=== PATIENT | female | born 1965 | race Caucasian/White ===

== ENCOUNTER 2020-06-04 11:16 | Outpatient (REF) | payer MEDICARE, SELFPAY ==
--- NOTE | 2020-06-04 11:20 | MM_ITS ---
EXAMINATION: MM SCREENING DIGITAL BREAST TOMOSYNTHESIS, BILATERAL CLINICAL INFORMATION: Screening. Asymptomatic. Family history of breast cancer in sister. The lifetime risk of breast cancer based on the Tyrer-Cuzick Model is 11%. COMPARISON: Mammography: 05/30/2019, 05/26/2018, 12/06/2016 TECHNIQUE: Digital breast tomosynthesis is performed in both the craniocaudal and mediolateral oblique views along with computer-aided detection (CAD). Synthesized 2D images are generated from the tomosynthesis. FINDINGS: There are scattered areas of fibroglandular density (ACR BI-RADS breast composition Category b). There are no significant masses, abnormal calcifications, or other abnormalities. Parenchymal pattern is similar to prior studies. No developing density. No significant changes. MM/MM tomosynthesis screening BI IMPRESSION: No mammographic evidence of malignancy. ASSESSMENT: BI-RADS 1: Negative RECOMMENDATION: Routine annual mammography screening. This patient's information was entered into a reminder system with a target due date for their next mammogram.
== END 2020-06-04 11:17 | disposition home or self-care (01) ==
LOC: HO.MAMMO 11:16
PROVIDERS: PCP Internal Medicine Medical Oncology; Visit Provider Internal Medicine Medical Oncology
DX: Z12.31 Encounter for screening mammogram for malignant neoplasm of breast (principal)
CPT/HCPCS: 77063; 77067

== ENCOUNTER 2021-04-01 11:58 | Outpatient (REF) | payer MEDICARE, MEDICAID, SELFPAY ==
[2021-04-01 12:55] LABS: MANUAL DIFF FLAG NO
[2021-04-01 13:02] LABS: Basophils Percent Auto 0.3 % (0-2); Eosinophils Absolute Auto 0.8 X10*3/uL (0.0-0.4); Eosinophils Percent Auto 8.5 % (0-4); Hematocrit 42.7 % (37-47); Hemoglobin 13.7 g/dl (12.0-16.0); Imm Gran Abs Auto 0.04 X10*3/uL (0.00-0.03); Imm Gran Pct Auto 0.4 % (0.0-0.4); Lymphocytes Absolute Auto 2.5 X10*3/uL (1.2-4.9); Lymphocytes Percent Auto 27.1 % (20-40); Mean Corpuscular HGB Conc 32.1 g/dl (31.0-35.0); Mean Corpuscular Hemoglobin 29.1 pg (27.0-33.0); Mean Corpuscular Volume 90.9 fL (80-98); Mean Platelet Volume 10.7 fL (9.4-12.3); Monocytes Absolute Auto 0.6 X10*3/uL (0.1-1.2); Monocytes Percent Auto 6.6 % (2-11); Neutrophils Absolute Auto 5.3 X10*3/uL (2.0-8.3); Neutrophils Percent Auto 57.1 % (45-73); Platelet Count 341 X10*3/uL (160-400); Red Cell Distribution Width 12.8 % (11.0-16.0); White Blood Count 9.3 X10*3/uL (4.8-10.8)
[2021-04-01 13:14] LABS: D Dimer < 200 NG/ML
[2021-04-01 13:49] LABS: Alanine Aminotransferase 33 U/L (0-31); Albumin Level 4.3 g/dL (3.5-5.0); Alkaline Phosphatase 108 U/L (39-117); Anion Gap 12 (12-20); Aspartate Amino Transferase 25 U/L (5-31); Bilirubin Total 0.3 mg/dL (0.0-1.0); Blood Urea Nitrogen 8 mg/dL (9-16); Calcium 9.3 mg/dL (8.4-10.2); Carbon Dioxide 25 mmol/L (22-29); Chloride 106 mmol/L (96-108); Cholesterol 204 mg/dL; Estimated Glomerular Filt Rate > 60; Glucose Fasting 103 mg/dL (60-99); HDL Cholesterol 43 mg/dL; LDL Cholesterol Calculated 121 mg/dl; Potassium 4.4 mmol/L (3.3-5.1); Sodium 139 mmol/L (135-145); Total Protein 7.2 g/dL (6.5-8.0); Triglycerides 202 mg/dL
== END 2021-04-01 11:59 | disposition home or self-care (01) ==
LOC: HO.LAB 11:58
PROVIDERS: PCP Internal Medicine Medical Oncology; Visit Provider Internal Medicine Medical Oncology
DX: E66.9 Obesity, unspecified (principal)
CPT/HCPCS: 36415; 80053; 80061; 85025; 85379

== ENCOUNTER 2021-11-18 10:32 | Outpatient (REF) | payer MEDICARE, MEDICAID, SELFPAY ==
--- NOTE | ~2021-11-18 | MM_ITS ---
EXAMINATION: MM SCREENING DIGITAL BREAST TOMOSYNTHESIS, BILATERAL CLINICAL INFORMATION: Screening. Asymptomatic. Family history breast cancer, sister. The lifetime risk of breast cancer based on the Tyrer-Cuzick Model is 12%. COMPARISON: Mammography: 06/04/2020, 05/30/2019, 05/26/2018, 11/12/2016 TECHNIQUE: Digital breast tomosynthesis is performed in both the craniocaudal and mediolateral oblique views along with computer-aided detection (CAD). Synthesized 2D images are generated from the tomosynthesis. Additional bilateral MLO views are obtained. FINDINGS: There are scattered areas of fibroglandular density (ACR BI-RADS breast composition Category b). There are no significant masses, abnormal calcifications, or other abnormalities. Parenchymal pattern is similar to prior studies. There is no developing density or architectural abnormality. There are scattered shifting fibroglandular parenchymal densities overall similar to prior studies. The axilla and skin contours are unremarkable. No significant changes. MM/MM tomosynthesis screening BI IMPRESSION: No mammographic evidence of malignancy. ASSESSMENT: BI-RADS 1: Negative RECOMMENDATION: Routine annual mammography screening. This patient's information was entered into a reminder system with a target due date for their next mammogram.
== END 2021-11-18 10:33 | disposition home or self-care (01) ==
LOC: HO.MAMMO 10:32
PROVIDERS: PCP Internal Medicine Medical Oncology; Visit Provider Internal Medicine Medical Oncology
DX: Z12.31 Encounter for screening mammogram for malignant neoplasm of breast (principal)
CPT/HCPCS: 77063; 77067

== ENCOUNTER → 2022-08-14 13:11 | Outpatient (BNVA) | payer MEDICARE, MEDICAID, SELFPAY | PROVIDERS: PCP Internal Medicine Medical Oncology; Visit Provider Internal Medicine | DX: K62.5 Hemorrhage of anus and rectum (principal); K29.70 Gastritis, unspecified, without bleeding; B96.81 Helicobacter pylori [H. pylori] as the cause of diseases classified elsewhere; Z86.010 Personal history of colon polyps; Z80.0 Family history of malignant neoplasm of digestive organs | CPT/HCPCS: 99202 ==

== ENCOUNTER → 2022-10-14 11:26 | Outpatient (BNVA) | payer MEDICARE, MEDICAID, SELFPAY | PROVIDERS: PCP Internal Medicine Medical Oncology; Visit Provider Internal Medicine | DX: Z11.0 Encounter for screening for intestinal infectious diseases (principal) | CPT/HCPCS: 99211 ==

== ENCOUNTER 2022-10-15 17:21 | Outpatient (REF) | payer MEDICARE, MEDICAID, SELFPAY ==
[2022-10-16 13:45] LABS: H Pylori Breath Test Positive (Negative)
== END 2022-10-15 17:22 | disposition home or self-care (01) ==
LOC: HO.LNP 17:21
PROVIDERS: Visit Provider Internal Medicine
DX: K29.70 Gastritis, unspecified, without bleeding (principal)
CPT/HCPCS: 83013

== ENCOUNTER → 2022-11-04 11:08 | Outpatient (BNVA) | payer MEDICARE, MEDICAID, SELFPAY | PROVIDERS: PCP Internal Medicine Medical Oncology; Visit Provider Internal Medicine | DX: K29.70 Gastritis, unspecified, without bleeding (principal); B96.81 Helicobacter pylori [H. pylori] as the cause of diseases classified elsewhere; Z86.010 Personal history of colon polyps; Z80.0 Family history of malignant neoplasm of digestive organs | CPT/HCPCS: 99212 ==

== ENCOUNTER 2022-11-20 11:06 | Outpatient (REF) | payer MEDICARE, MEDICAID, SELFPAY ==
--- NOTE | ~2022-11-20 | MM_ITS ---
EXAMINATION: MM SCREENING DIGITAL BREAST TOMOSYNTHESIS, BILATERAL CLINICAL INFORMATION: Screening. Asymptomatic. The lifetime risk of breast cancer based on the Tyrer-Cuzick Model is 12.4%. COMPARISON: Mammography: November 18, 2021 and studies dating back to April 16, 2015 TECHNIQUE: Digital breast tomosynthesis is performed in both the craniocaudal and mediolateral oblique views along with computer-aided detection (CAD). Synthesized 2D images are generated from the tomosynthesis. FINDINGS: There are scattered areas of fibroglandular density (ACR BI-RADS breast composition Category b). There are no new significant masses, abnormal calcifications, or other abnormalities. Stable density with some adjacent stable calcifications seen within the upper outer aspect of the left breast MM/MM tomosynthesis screening BI IMPRESSION: No significant changes from prior exam. ASSESSMENT: BI-RADS 2: Benign RECOMMENDATION: Routine annual mammography screening. This patient's information was entered into a reminder system with a target due date for their next mammogram.
== END 2022-11-20 11:07 | disposition home or self-care (01) ==
LOC: HO.MAMMO 11:06
PROVIDERS: PCP Internal Medicine Medical Oncology; Visit Provider Internal Medicine Medical Oncology
DX: Z12.31 Encounter for screening mammogram for malignant neoplasm of breast (principal)
CPT/HCPCS: 77063; 77067

== ENCOUNTER → 2022-12-30 10:43 | Outpatient (BNVA) | payer MEDICARE, MEDICAID, SELFPAY | PROVIDERS: PCP Internal Medicine Medical Oncology; Visit Provider Internal Medicine | DX: Z11.0 Encounter for screening for intestinal infectious diseases (principal) | CPT/HCPCS: 83013; 99211 ==

== ENCOUNTER 2022-12-30 11:15 | Outpatient (REF) | payer MEDICARE, MEDICAID, SELFPAY ==
[2023-01-07 11:18] LABS: H Pylori Breath Test Positive (Negative)
== END 2022-12-30 11:16 | disposition home or self-care (01) ==
LOC: HO.LNP 11:15
PROVIDERS: Visit Provider Internal Medicine
DX: Z13.89 Encounter for screening for other disorder (principal)
CPT/HCPCS: 83013

== ENCOUNTER → 2023-01-19 11:44 | Outpatient (BNVA) | payer MEDICARE, MEDICAID, SELFPAY | PROVIDERS: PCP Internal Medicine Medical Oncology; Visit Provider Internal Medicine | DX: K29.70 Gastritis, unspecified, without bleeding (principal); B96.81 Helicobacter pylori [H. pylori] as the cause of diseases classified elsewhere; I10 Essential (primary) hypertension; J44.9 Chronic obstructive pulmonary disease, unspecified; Z86.010 Personal history of colon polyps; Z80.0 Family history of malignant neoplasm of digestive organs; Z91.199 Patient's noncompliance with other medical treatment and regimen due to unspecified reason | CPT/HCPCS: 99212 ==

== ENCOUNTER 2023-04-15 09:20 | Day surgery (SDC) | payer MEDICARE, MEDICAID, SELFPAY ==
--- NOTE | 2022-12-30 10:57 | HO.ANESPROP2 ---
HPI - Anesthesia Eval Consult details Narrative: 57yo F for Upper Endoscopy and Colonoscopy [facility] Active Problems Active Problems: All Active Problems (Updated 12/29/22 @ 14:02 by Daiana Harris RN) Bright red rectal bleeding (Acute) Personal history of colonic polyps (Acute) Family history of gastric cancer (Acute) Helicobacter pylori gastritis (Acute) Past Medical History Medical History Chronic back pain COPD (chronic obstructive pulmonary disease) Helicobacter pylori gastritis HTN (hypertension) Lumbar radiculopathy Obesity Smoker Family History Family History Mother Stomach cancer Maternal Grandfather Prostate cancer screening declined Sister Cervical cancer Sister Breast cancer Diabetes Paternal Aunt Heart disease Surgical History Surgical History H/O colonoscopy Hx of appendectomy S/P removal of right ovary S/P tonsillectomy S/P tubal ligation Social History Social History Alcohol intake: current Alcohol intake frequency: holidays/special occasions only Patient Tobacco Use Status: Current everyday Tobacco user Cigarettes Per Day: 3 Meds Allergies Allergy/AdvReac Type Severity Reaction Status Date / Time Latex, Natural Rubber Allergy Severe Rash Verified 11/04/22 11:13 Home Medications Medication Instructions Recorded Confirmed Last Taken Type albuterol sulfate 90 mcg/actuation 2 puff inhalation Q4H PRN 08/14/22 11/04/22 Unknown History aerosol inhaler (Ventolin HFA) amlodipine 5 mg tablet 5 mg PO BID 08/14/22 11/04/22 Unknown History cyclobenzaprine 10 mg tablet 10 mg PO BID 08/14/22 11/04/22 Unknown History gabapentin 600 mg tablet 600 mg PO QID 08/14/22 11/04/22 Unknown History montelukast 10 mg tablet 10 mg PO DAILY 08/14/22 11/04/22 Unknown History Exam Exam Date and Time: December 30, [id number] Assessment and Plan Assessment Anesthesia Assessment: Chart Reviewed
--- NOTE | 2023-04-14 09:26 | HO.ANESPROP2 ---
Documented by User: Sandra Franklin NP 04/14/23 09:27 HPI - Anesthesia Eval Consult details Narrative: 58yo F for Upper Endoscopy and Colonoscopy [facility] Active Problems Active Problems: All Active Problems (Updated 12/29/22 @ 14:02 by Daiana Harris, SHRUTHI) Bright red rectal bleeding (Acute) Personal history of colonic polyps (Acute) Family history of gastric cancer (Acute) Helicobacter pylori gastritis (Acute) Past Medical History Medical History Obesity Chronic back pain Lumbar radiculopathy Smoker HTN (hypertension) COPD (chronic obstructive pulmonary disease) Helicobacter pylori gastritis Family History Family History Mother Stomach cancer Maternal Grandfather Prostate cancer screening declined Sister Cervical cancer Sister Breast cancer Diabetes Paternal Aunt Heart disease Surgical History Surgical History History of esophagogastroduodenoscopy (EGD) H/O colonoscopy S/P removal of right ovary S/P tubal ligation S/P tonsillectomy Hx of appendectomy Social History Social History Alcohol intake: current Alcohol intake frequency: holidays/special occasions only Patient Tobacco Use Status: Current everyday Tobacco user Cigarettes Per Day: 3 Are you DNR?: No Advance Directives: No Advance Directives Information Provided: Yes Recently lost weight without trying: No Meds Allergies Allergy/AdvReac Type Severity Reaction Status Date / Time Latex, Natural Rubber Allergy Severe Rash Verified 01/19/23 11:46 Home Medications Medication Instructions Recorded Confirmed Last Taken Type albuterol sulfate 90 mcg/actuation 2 puff inhalation Q4H PRN 08/14/22 11/04/22 Unknown History aerosol inhaler (Ventolin HFA) amlodipine 5 mg tablet 5 mg PO BID 08/14/22 11/04/22 Unknown History cyclobenzaprine 10 mg tablet 10 mg PO BID 08/14/22 11/04/22 Unknown History gabapentin 600 mg tablet 600 mg PO QID 08/14/22 11/04/22 Unknown History montelukast 10 mg tablet 10 mg PO DAILY 08/14/22 11/04/22 Unknown History naproxen sodium 220 mg tablet (All 220 mg PO Q12H PRN 01/19/23 Unknown History Day Relief) Exam Exam Date and Time: April 14, [id number] Assessment and Plan Assessment Anesthesia Assessment: Chart Reviewed Documented by User: Lilibeth Dominguez MD 04/15/23 10:20 [facility] Past Medical History Medical History Obesity Chronic back pain Lumbar radiculopathy Smoker HTN (hypertension) COPD (chronic obstructive pulmonary disease) Helicobacter pylori gastritis Family History Family History Mother Stomach cancer Maternal Grandfather Prostate cancer screening declined Sister Cervical cancer Sister Breast cancer Diabetes Paternal Aunt Heart disease Surgical History Surgical History History of esophagogastroduodenoscopy (EGD) H/O colonoscopy S/P removal of right ovary S/P tubal ligation S/P tonsillectomy Hx of appendectomy History of Problems with Anesthesia: No Social History Social History Alcohol intake: current Alcohol intake frequency: holidays/special occasions only Patient Tobacco Use Status: Current everyday Tobacco user Cigarettes Per Day: 3 Are you DNR?: No Advance Directives: No Advance Directives Information Provided: Yes Recently lost weight without trying: No Meds Allergies Allergy/AdvReac Type Severity Reaction Status Date / Time Latex, Natural Rubber Allergy Severe Rash Verified 01/19/23 11:46 Home Medications Medication Instructions Recorded Confirmed Last Taken Type albuterol sulfate 90 mcg/actuation 2 puff inhalation Q4H PRN 08/14/22 11/04/22 Unknown History aerosol inhaler (Ventolin HFA) amlodipine 5 mg tablet 5 mg PO BID 08/14/22 11/04/22 Unknown History cyclobenzaprine 10 mg tablet 10 mg PO BID 08/14/22 11/04/22 Unknown History gabapentin 600 mg tablet 600 mg PO QID 08/14/22 11/04/22 Unknown History montelukast 10 mg tablet 10 mg PO DAILY 08/14/22 11/04/22 Unknown History naproxen sodium 220 mg tablet (All 220 mg PO Q12H PRN 01/19/23 Unknown History Day Relief) Exam Airway Mallampati Class: II (edentulous) TM Dist: >3cm Neck ROM: Full Denture: Upper Loose/Missing/Broken Teeth: Yes, Upper and Lower Heart: RRR Lungs: CTA Assessment and Plan Assessment Anesthesia Assessment: Anesthesia Plan Discussed Final Anesthetic Review History of Problems with Anesthesia: No NPO: Yes ASA Class: II Final Preanesthetic Review: Meds/Allgs Chart Reviewed, Consent Obtained/Reviewed and Anes Risks/Benef Reviewed Patient Risk: Low Procedure Risk: Intermediate Anesthetic Plan Anesthetic Plan: MAC: Disposition: Standard PACU
[2023-04-15 09:39] VITALS: BP 133/93; PULSE 79; RESP 20; TEMP 36.1; O2SAT 96; BMI 31.9
--- NOTE | 2023-04-15 11:41 | MHC.SHP ---
Pre-Procedural Eval Section A Date of Service: 04/15/23 Section B Chief Complaint: Fam hx of gastric ca, hx colonic polyps Details of Present Illness: PMH: Chronic back pain COPD (chronic obstructive pulmonary disease) Helicobacter pylori gastritis HTN (hypertension) Lumbar radiculopathy Obesity Smoker Surgical History : H/O colonoscopy History of esophagogastroduodenoscopy (EGD) Hx of appendectomy S/P removal of right ovary S/P tonsillectomy S/P tubal ligation Present Medications: see Short Stay Collaborative assessment Allergies: Allergies Allergy/AdvReac Type Severity Reaction Status Date / Time Latex, Natural Rubber Allergy Severe Rash Verified 01/19/23 11:46 Review of Systems Review of Systems Comment: Ten point ROS negative Exam Exam Comment: Gen appear: No acute distress HEENT: no icterus Chest: No overt resp distress Abd: soft, nontender, nondistended Psych: Stable affect, answering questions appropriately Neuro: A/Ox3 noted to move all extremities spontaneously Ext: no peripheral edema Plan Diagnosis/Plan: Unchanged I have reviewed the history and physical and performed a pertinent physical examination on my patient. No changes have occurred unless specified. Time Spent With Patient Time: Total time managing care of this patient today ____ minutes.
--- NOTE | 2023-04-15 11:43 | P.OP_ITS ---
Operative Note Operative Note Date of Service: 04/15/23 Narrative: Procedure:?Esophagogastroduodenoscopy and colonoscopy Endoscopist:?Sasha Orozco MD Indication:?Fam hx of gastric ca, hx of colon polyps Anesthesia Provider:?Dr Lilibeth Dominguez Anesthesia Type:?MAC Instrument:?Olympus GIF-H190, PCF-H190L EGD Procedure:?? The procedure, indications, preparation and potential complications were reviewed with the patient, who indicated understanding and gave written informed consent to proceed. A physical exam was performed. The endoscope was introduced through the mouth, and advanced to the second part of duodenum. The mucosa was carefully examined on slow withdrawal of the endoscope. There were no immediate complications. Patient tolerated the procedure well. EGD Findings:? * Esophagus:? Normal mucosa noted in the entire esophagus. The Z-line is at 40 cm. * Stomach:? Normal gastric mucosa. Retroflexion performed in the fundus. Specimens from antrum and fundus were sent for H Pylori culture and sensitivities. Cold forceps biopsies were also obtain for gastric mapping per Leida Protocol to r/o gastric intestinal metaplasia. * Duodenum:? Normal duodenal mucosa to the extent visualised. Colonoscopy Procedure:? The patient was then turned for the colonoscopy. A digital rectal exam was performed which was abnormal for large external hemorrhoids.? A distal attachment cap was affixed to the tip of the scope and the colonoscope was then inserted through the anus and advanced through the colon to the cecum at 85 cm and terminal ileum. Appendiceal orifice and ileocecal valve were identified. Mucosa was carefully examined under high definition white light as the instrument was slowly withdrawn in a retrograde panoramic fashion. Retroflexion was performed in rectum. The procedure was not difficult. There were no immediate obvious complications. The quality of the prep was BBPS: 2+2+3 = adequate Withdrawal time: 9 minutes Limitations: No limitation. Findings: Mucosa: Normal mucosa to cecum. Protruding lesions: * 1 sessile polyp of size 4 mm was noted in the cecum. Cold snare polypectomy was performed. The polyp was completely removed and retrieved. * 1 sessile polyp of size 7 mm was noted in the transverse colon. Cold snare polypectomy was performed. The polyp was completely removed and retrieved. * Medium internal hemorrhoids without stigmata of recent bleeding. Excavated lesions: * Scattered diverticulosis of sigmoid colon. Impression: 1. Normal esophageal mucosa 2. Normal gastric mucosa (mapping bx, H Pylori C/S) 3. Normal duodenum 4. Normal colon mucosa 5. 2 polyps removed 6. Internal hemorrhoids 7. Diverticulosis Recommendations:?? * Await pathology results. * Tx of H pylori as per C/S results * Depending on results of polyps, next colo in 5-7 years.
[2023-04-15 12:33] VITALS: BP 119/71; PULSE 71; RESP 18; TEMP 36.2; O2SAT 97
[2023-04-15 12:48] VITALS: BP 133/94; PULSE 69; RESP 20; TEMP 36.9; O2SAT 98
== END 2023-04-15 13:10 | disposition home or self-care (01) ==
PROVIDERS: PCP Internal Medicine Medical Oncology; Visit Provider Internal Medicine
PROC: (CPT 45385; principal; 2023-04-15 10:50)
DX: D12.3 Benign neoplasm of transverse colon (principal); D12.0 Benign neoplasm of cecum; K55.20 Angiodysplasia of colon without hemorrhage; K57.30 Diverticulosis of large intestine without perforation or abscess without bleeding; K64.8 Other hemorrhoids; Z86.010 Personal history of colon polyps; Z80.0 Family history of malignant neoplasm of digestive organs; K29.50 Unspecified chronic gastritis without bleeding; I10 Essential (primary) hypertension; J44.9 Chronic obstructive pulmonary disease, unspecified; Z79.899 Other long term (current) drug therapy
CPT/HCPCS: 45385; 43239; 36415; 87081; 88305; 88342

== ENCOUNTER → 2023-04-15 09:20 | Outpatient (BNV) | payer MEDICARE, MEDICAID, SELFPAY | PROVIDERS: PCP Internal Medicine Medical Oncology; Visit Provider Internal Medicine | DX: Z12.11 Encounter for screening for malignant neoplasm of colon (principal); Z86.010 Personal history of colon polyps; Z80.0 Family history of malignant neoplasm of digestive organs; K63.5 Polyp of colon; K29.70 Gastritis, unspecified, without bleeding; B96.81 Helicobacter pylori [H. pylori] as the cause of diseases classified elsewhere | CPT/HCPCS: 43239; 45385 ==

== ENCOUNTER 2023-05-21 14:25 | Outpatient (AMB) | payer MEDICARE, MEDICAID, SELFPAY ==
--- NOTE | 2023-05-21 14:28 | MHC.OFFVIS ---
Intake Vital Signs 05/21/23 14:30 Height 5 ft 7 in Weight 209 lb 7.026 oz BMI 32.8 BP 157/89 H Blood Pressure Location Lt brachial Position Sitting Pulse 87 Intake Visit Reasons: Endoscopy and Colonoscopy follow up Intake Note: Jolie presents in the office as a follow up EGD and COLO. CC: She states that she is not having any concerns since the procedures - just has a lot of gas. Allergies Latex, Natural Rubber Allergy (Severe, Verified 05/21/23 14:32) Rash HPI HPI Comments History of Present Illness Details This is a 57 year old female past medical history of hypertension, COPD, previous history of H pylori, tubular adenoma, family history of gastric cancer, who presents to the office for follow up. 08/14/22: Previous EGD/colonoscopy 2015 showed H pylori gastritis. Patient recalls receiving treatment for 2 weeks, but does not think she had a follow-up breath test or stool test for cure. Colonoscopy was excellent prep to the cecum, 1 definitive tubular adenoma. Currently, does complain of intermittent blood per rectum on wiping, specially after passing hard stool. She does report that on baseline she is constipated, and has to strain most of the days. Otherwise, no abdominal pain, nausea, vomiting, unintentional weight loss. 11/04/22: Currently, only complaint is intermittent abdominal cramping and bloating. Otherwise no other gastrointestinal issues. She did not remember to do the CBC, but does report resolution of intermittent blood per rectum since improvement in her constipation. The H pylori breath test positive. To recall, has fam history of gastric cancer (mother). 01/19/23: Pt currently has no gastrointestinal complaints. Has been having R knee pain from arthritis for which she takes naproxen/ibuprofen. Had breath test done after completing therapy which is POSITIVE for H pylori. However states that ran out of one med within 5 days?? She is unsure which med that was. She also tells me that she has bismuth and tetracycline pills left still. Was supposed to have EGD/colo done last week but fell ill so rescheduled it. 04/15/23: EGD/colo 1. Normal esophageal mucosa 2. Normal gastric mucosa (mapping bx, H Pylori C/S) 3. Normal duodenum 4. Normal colon mucosa 5. 2 polyps removed 6. Internal hemorrhoids 7. Diverticulosis Path: A. Gastric antrum, lesser curvature, biopsy: Mild chronic gastritis without activity, with reactive changes, focal intestinal metaplasia and rare H pylori; negative for dysplasia. B. Gastric antrum, greater curvature, biopsy: Mild chronic gastritis without activity, with mild reactive changes; negative for H pylori, intestinal metaplasia and dysplasia. C. Gastric body, incisura angularis, biopsy: Chronic gastritis with focal minimal activity and rare H pylori; negative for intestinal metaplasia and dysplasia. D. Gastric body, lesser curvature, biopsy: Focal mild chronic gastritis without activity; negative for H pylori, intestinal metaplasia and dysplasia. E. Gastric body, greater curvature, biopsy: Focal mild chronic gastritis without activity and rare H pylori; negative for intestinal metaplasia and dysplasia. F. Colon, transverse, polyp: Tubular adenoma, completely excised; negative for high-grade dysplasia and carcinoma. G. Colon, cecal polyp: Sessile serrated lesion/polyp without dysplasia 05/21/23: Findings on EGD and colo reviewed with the pt. Persistent H pylori despite quad therapy x 2. Pt reports good adherence to quad therapy last time. Unfortunately the sample sent for culture and sensitivity could not be processed due to mishandling in lab (see work load documentation under results from 04/28/23). Therefore, salvage therapy opted Rifabutin based. Talicia covered by insurance. In terms of polyps, due to SSL, will need a repeat in 5 years. [facility] Medical History Obesity Chronic back pain Lumbar radiculopathy Smoker HTN (hypertension) COPD (chronic obstructive pulmonary disease) Helicobacter pylori gastritis Surgical History History of esophagogastroduodenoscopy (EGD) H/O colonoscopy S/P removal of right ovary S/P tubal ligation S/P tonsillectomy Hx of appendectomy Family History Mother Stomach cancer Maternal Grandfather Prostate cancer screening declined Sister Cervical cancer Sister Breast cancer Diabetes Paternal Aunt Heart disease Social History Alcohol intake: current Alcohol intake frequency: holidays/special occasions only Patient Tobacco Use Status: Current everyday Tobacco user Cigarettes Per Day: 3 Physical Exam Vital Signs: Last Vital Signs Pulse 87 10/13/23 14:30 BP 157/89 H 05/21/23 14:30 BMI result Body Mass Index 32.8 Gen appear: NAD HEENT: nonicteric, no cervical lymphadenopathy Chest: CTA CVS: Regular S1/S2 Abd: soft, nontender, nondistended, bowel sounds + Ext: no peripheral edema Neuro: A/Ox3, noted to move all extremities spontaneously Psych: interacting appropriately Assessment & Plan Assessment & Plan (1) Helicobacter pylori gastritis: Code(s): K29.70 - Gastritis, unspecified, without bleeding; B96.81 - Helicobacter pylori [H. pylori] as the cause of diseases classified elsewhere (2) Family history of gastric cancer: Code(s): Z80.0 - Family history of malignant neoplasm of digestive organs (3) Personal history of colonic polyps: Code(s): Z86.010 - Personal history of colonic polyps Plan 1. H pylori gastritis; fam hx of gastric ca. Has failed quad therapy x2 despite good compliance reported on most recent tx. Reassuringly only focal antral GIM on mapping bx despite fam hx. Since no C&S data to guide further therapy, opted to start Talicia. Instructions were reviewed with the pt and confirmed with teach back method. Plan: - Talicia Rxed x 14 days to be taken TID as per instructions - ELINOR 2-3 weeks after completion of therapy. 2. Personal hx of polyps. - Repeat colo recommended in 5 years. Follow up after ELINOR Medications: New qbnztjallw-vogplkcxs-aelzuzdoa 10-250-12.5 mg (Talicia) must administer with a meal/food 4 caps (4 x 10-250-12.5 mg) PO Q8H 168 ea 0RF 14 days Refilled sennosides (senna) 8.6 mg PO .daily in AM 30 caps 1RF 30 days Discontinued metronidazole Discontinued Reason: Doctor's Order 250 mg PO QID 14 days 56 tabs 0RF bismuth subsalicylate Discontinued Reason: Doctor's Order 2 tabs PO QID 14 days 112 tabs 0RF tetracycline Discontinued Reason: Doctor's Order 500 mg PO QID 14 days 56 caps 0RF omeprazole Discontinued Reason: Doctor's Order 20 mg PO BID 14 days 28 caps 0RF Coding Level of Care Code Est Pt Level 4 (04573) Diagnoses Helicobacter pylori gastritis K29.70; B96.81 Family history of gastric cancer Z80.0 Personal history of colonic polyps Z86.010
[2023-05-21 14:30] VITALS: BP 157/89; PULSE 87; BMI 32.8
== END 2023-05-21 15:16 | disposition home or self-care (01) ==
PROVIDERS: PCP Internal Medicine Medical Oncology; Visit Provider Internal Medicine
DX: K29.70 Gastritis, unspecified, without bleeding (principal); B96.81 Helicobacter pylori [H. pylori] as the cause of diseases classified elsewhere; Z80.0 Family history of malignant neoplasm of digestive organs; Z86.010 Personal history of colon polyps
CPT/HCPCS: 99214

== ENCOUNTER → 2023-05-21 14:25 | Outpatient (BNVA) | payer MEDICARE, MEDICAID, SELFPAY | PROVIDERS: PCP Internal Medicine Medical Oncology; Visit Provider Internal Medicine | DX: K29.70 Gastritis, unspecified, without bleeding (principal); B96.81 Helicobacter pylori [H. pylori] as the cause of diseases classified elsewhere; Z80.0 Family history of malignant neoplasm of digestive organs; Z86.010 Personal history of colon polyps | CPT/HCPCS: 99212 ==

== ENCOUNTER 2023-07-16 10:09 | Outpatient (REF) | payer MEDICARE, MEDICAID, SELFPAY ==
[2023-07-17 13:45] LABS: H Pylori Breath Test Negative (Negative)
== END 2023-07-16 10:10 | disposition home or self-care (01) ==
LOC: HO.LNP 10:09
PROVIDERS: PCP Internal Medicine Medical Oncology; Visit Provider Internal Medicine
DX: Z11.0 Encounter for screening for intestinal infectious diseases (principal)
CPT/HCPCS: 83013; 99211

== ENCOUNTER 2023-07-23 09:40 | Outpatient (AMB) | payer MEDICARE, MEDICAID, SELFPAY ==
[2023-07-23 09:41] VITALS: BP 176/81; PULSE 93; BMI 33.6
--- NOTE | 2023-07-23 09:41 | A.OFFVIS_ITS ---
Intake Vital Signs 07/23/23 09:41 Height 5 ft 7 in Weight 214 lb 4.629 oz BMI 33.6 BP 176/81 H Blood Pressure Location Lt brachial Position Sitting Pulse 93 Pulse Source Pulse Oximeter Intake Visit Reasons: 6 week f/u Ernesto PT Family history of gastric cancer Intake Note: Pt presents to the office today for a 6 week follow up. Pt states she is feeling okay. Pt denies any GI concerns at this time and denies any N/V/D. Pt states she is achy and tired. Allergies Latex, Natural Rubber Allergy (Severe, Verified 07/23/23 09:43) Rash HPI 6 week f/u Ernesto PT Family history of gastric cancer HPI Details LAST VISIT: Plan 1. H pylori gastritis; fam hx of gastric ca. Has failed quad therapy x2 despite good compliance reported on most recent tx. Reassuringly only focal antral GIM on mapping bx despite fam hx. Since no C&S data to guide further therapy, opted to start Talicia. Instructions were reviewed with the pt and confirmed with teach back method. Plan: - Talicia Rxed x 14 days to be taken TID as per instructions - ELINOR 2-3 weeks after completion of ther apy. 2. Personal hx of polyps. - Repeat colo recommended in 5 years. TODAY'S VISIT: Patient is here today for follow-up. Patient is Dr. Orozco's patient. Here to discuss results of her H pylori breath test. Patient completed 2 week treatment with Talicia with successful irrigation of H pylori bacteria. Patient reports that she has been feeling better. Occasional epigastric discomfort for depending on what she eats. Occasional acid reflux. Patient denies any dyspepsia, dysphagia or odynophagia. Overall patient reports that she has been doing well. [facility], LAT[facility] Medical History (Updated 07/23/23 @ 19:14 by Sharla Trammell, [facility]) Helicobacter pylori gastritis Family history of gastric cancer Personal history of colonic polyps Bright red rectal bleeding Obesity Chronic back pain Lumbar radiculopathy Smoker HTN (hypertension) COPD (chronic obstructive pulmonary disease) Surgical History History of esophagogastroduodenoscopy (EGD) H/O colonoscopy S/P removal of right ovary S/P tubal ligation S/P tonsillectomy Hx of appendectomy Family History Mother Stomach cancer Maternal Grandfather Prostate cancer screening declined Sister Cervical cancer Sister Breast cancer Diabetes Paternal Aunt Heart disease Social History Alcohol intake: current Alcohol intake frequency: holidays/special occasions only Patient Tobacco Use Status: Current everyday Tobacco user Cigarettes Per Day: 3 Review of Systems Const Denies weight gain and Denies weight loss ENT Reports no additional complaints, Denies dysphagia and Denies odynophagia Card Reports no additional complaints Resp Reports no additional complaints GI Denies abdominal pain, Denies belching, Denies melena, Denies bloating, Denies change in bowel habits, Reports constipation, Denies dysphagia, Denies excessive flatus, Denies dyspepsia, Reports heartburn (Occasional), Denies diarrhea, Denies loose stools, Denies nausea, Denies odynophagia and Denies vomiting Reports no additional complaints Musc Reports no additional complaints Neuro Reports no additional complaints Psych Reports no additional complaints Endo Reports no additional complaints Physical Exam Vital Signs: Last Vital Signs Pulse 93 07/23/23 09:41 BP 176/81 H 07/23/23 09:41 BMI result Body Mass Index 33.6 Const General: healthy appearing, no acute distress and well developed Nutritional Appearance: obese Orientation/consciousness: patient oriented x3 HEENT Head: Yes normal to inspection, Yes normocephalic and Yes atraumatic Eyes General: appearance normal, both eyes and all related structures Neck Neck: Yes normal visual inspection, Yes full ROM and Yes trachea midline Thyroid: Thyroid normal Resp Effort & Inspection: normal respiratory effort, able to speak in complete sentences, no tracheal deviation and symmetric chest movement Auscultation: clear to auscultation bilaterally Cardio Rate: regular rate GI Inspection: Yes normal to inspection, No distended and Yes obesity Palpation (GI): Soft to palpation, not firm, nontender and No hepatosplenomegaly present Auscultation: normal bowel sounds General: Yes no CVA tenderness Back/Spine/Pelvis Back: no CVA tenderness Skin General skin exam: elasticity normal, turgor normal and dry skin Neuro General: patient oriented x3 Psych Appearance: grossly normal Mental Status: mental status grossly normal Assessment & Plan Assessment & Plan (1) Family history of gastric cancer: Code(s): Z80.0 - Family history of malignant neoplasm of digestive organs (2) Helicobacter pylori gastritis: Code(s): K29.70 - Gastritis, unspecified, without bleeding; B96.81 - Helicobacter pylori [H. pylori] as the cause of diseases classified elsewhere (3) GERD (gastroesophageal reflux disease): Code(s): K21.9 - Gastro-esophageal reflux disease without esophagitis Qualifiers: Esophagitis presence: without esophagitis Qualified Code(s): K21.9 - Gastro-esophageal reflux disease without esophagitis Plan Discussed with patient avoiding dietary triggers and late night snacking. Staying upright for minimum 3 hours after meals discussed with patient. Smoking cessation encouraged. Patient can take Nexium 20 mg daily. Follow-up with Dr. Orozco in 3 months, sooner on as needed basis. Patient is agreeable to this plan and verbalizes understanding of instructions. She was given the opportunity to ask questions and all questions answered. Thank you for allowing me to participate in her care Medications: New esomeprazole magnesium (Nexium 24HR) 20 mg PO DAILY 90 tabs 2RF Changed From sennosides (senna) 8.6 mg PO .daily in AM 30 days 30 caps 1RF To sennosides (senna) 17.2 mg (2 x 8.6 mg) PO BEDTIME 90 days 180 caps 1RF Coding Level of Care Code Est Pt Level 3 (24509) Diagnoses Family history of gastric cancer Z80.0 Helicobacter pylori gastritis K29.70; B96.81 Gastroesophageal reflux disease without esophagitis K21.9 Esophagitis presence: without esophagitis Time Spent (min) 30 Comment 20 minutes spent with patient and additional 10 minutes spent reviewing her records
== END 2023-07-23 10:30 | disposition home or self-care (01) ==
PROVIDERS: PCP Internal Medicine Medical Oncology; Visit Provider Nurse Practitioner Family
DX: Z80.0 Family history of malignant neoplasm of digestive organs (principal); K29.70 Gastritis, unspecified, without bleeding; B96.81 Helicobacter pylori [H. pylori] as the cause of diseases classified elsewhere; K21.9 Gastro-esophageal reflux disease without esophagitis
CPT/HCPCS: 99213

== ENCOUNTER → 2023-07-23 09:40 | Outpatient (BNVA) | payer MEDICARE, MEDICAID, SELFPAY | PROVIDERS: PCP Internal Medicine Medical Oncology; Visit Provider Nurse Practitioner Family | DX: K29.70 Gastritis, unspecified, without bleeding (principal); K21.9 Gastro-esophageal reflux disease without esophagitis; B96.81 Helicobacter pylori [H. pylori] as the cause of diseases classified elsewhere; Z80.0 Family history of malignant neoplasm of digestive organs | CPT/HCPCS: 99212 ==

== ENCOUNTER 2023-10-13 09:47 | Outpatient (AMB) | payer MEDICARE, MEDICAID, SELFPAY ==
[2023-10-13 09:49] VITALS: BP 131/71; PULSE 80; BMI 32.5
--- NOTE | 2023-10-13 09:49 | MHC.OFFVIS ---
Intake Vital Signs 10/13/23 09:49 Height 5 ft 7 in Weight 207 lb 3.752 oz BMI 32.5 BP 131/71 Blood Pressure Location Lt brachial Position Sitting Pulse 80 Intake Visit Reasons: 3 month follow up Intake Note: Jolie presents in the office as a 3 month follow up. CC: She was given nexium and senna but insurance denied nexium. She has been taking tums to help for her acid reflux. Laundry Room Attendant Required: No Allergies Latex, Natural Rubber Allergy (Severe, Verified 10/13/23 09:51) Rash HPI HPI Comments History of Present Illness Details This is a 57 year old female past medical history of hypertension, COPD, previous history of H pylori, tubular adenoma, family history of gastric cancer, who presents to the office for follow up. 08/14/22: Previous EGD/colonoscopy 2015 showed H pylori gastritis. Patient recalls receiving treatment for 2 weeks, but does not think she had a follow-up breath test or stool test for cure. Colonoscopy was excellent prep to the cecum, 1 definitive tubular adenoma. Currently, does complain of intermittent blood per rectum on wiping, specially after passing hard stool. She does report that on baseline she is constipated, and has to strain most of the days. Otherwise, no abdominal pain, nausea, vomiting, unintentional weight loss. 11/04/22: Currently, only complaint is intermittent abdominal cramping and bloating. Otherwise no other gastrointestinal issues. She did not remember to do the CBC, but does report resolution of intermittent blood per rectum since improvement in her constipation. The H pylori breath test positive. To recall, has fam history of gastric cancer (mother). 01/19/23: Pt currently has no gastrointestinal complaints. Has been having R knee pain from arthritis for which she takes naproxen/ibuprofen. Had breath test done after completing therapy which is POSITIVE for H pylori. However states that ran out of one med within 5 days?? She is unsure which med that was. She also tells me that she has bismuth and tetracycline pills left still. Was supposed to have EGD/colo done last week but fell ill so rescheduled it. 04/15/23: EGD/colo 1. Normal esophageal mucosa 2. Normal gastric mucosa (mapping bx, H Pylori C/S) 3. Normal duodenum 4. Normal colon mucosa 5. 2 polyps removed 6. Internal hemorrhoids 7. Diverticulosis Path: A. Gastric antrum, lesser curvature, biopsy: Mild chronic gastritis without activity, with reactive changes, focal intestinal metaplasia and rare H pylori; negative for dysplasia. B. Gastric antrum, greater curvature, biopsy: Mild chronic gastritis without activity, with mild reactive changes; negative for H pylori, intestinal metaplasia and dysplasia. C. Gastric body, incisura angularis, biopsy: Chronic gastritis with focal minimal activity and rare H pylori; negative for intestinal metaplasia and dysplasia. D. Gastric body, lesser curvature, biopsy: Focal mild chronic gastritis without activity; negative for H pylori, intestinal metaplasia and dysplasia. E. Gastric body, greater curvature, biopsy: Focal mild chronic gastritis without activity and rare H pylori; negative for intestinal metaplasia and dysplasia. F. Colon, transverse, polyp: Tubular adenoma, completely excised; negative for high-grade dysplasia and carcinoma. G. Colon, cecal polyp: Sessile serrated lesion/polyp without dysplasia 05/21/23: Findings on EGD and colo reviewed with the pt. Persistent H pylori despite quad therapy x 2. Pt reports good adherence to quad therapy last time. Unfortunately the sample sent for culture and sensitivity could not be processed due to mishandling in lab (see work load documentation under results from 04/28/23). Therefore, salvage therapy opted Rifabutin based. Talicia covered by insurance. In terms of polyps, due to SSL, will need a repeat in 5 years. 10/13/23: Was seen by Sharla Trammell in my absence. Successful eradication of H Pylori with Talicia. Currently only complaint is occasional post prandial bloating. Otherwise feels well. COUNTS INCLUDE 234 BEDS AT THE [facility] Medical History (Updated 10/13/23 @ 12:25 by Sasha Orozco MD) Personal history of colonic polyps Helicobacter pylori gastritis Family history of gastric cancer Bright red rectal bleeding Obesity Chronic back pain Lumbar radiculopathy Smoker HTN (hypertension) COPD (chronic obstructive pulmonary disease) Surgical History History of esophagogastroduodenoscopy (EGD) H/O colonoscopy S/P removal of right ovary S/P tubal ligation S/P tonsillectomy Hx of appendectomy Family History Mother Stomach cancer Maternal Grandfather Prostate cancer screening declined Sister Cervical cancer Sister Breast cancer Diabetes Paternal Aunt Heart disease Social History Alcohol intake: current Alcohol intake frequency: holidays/special occasions only Patient Tobacco Use Status: Current everyday Tobacco user Cigarettes Per Day: 3 Review of Systems Const All systems reviewed & are unremarkable except as noted in HPI and below Physical Exam Vital Signs: Last Vital Signs Pulse 80 10/13/23 09:49 BP 131/71 10/13/23 09:49 BMI result Body Mass Index 32.5 Const General: healthy appearing and comfortable Orientation/consciousness: patient oriented x3 Resp Effort & Inspection: normal respiratory effort GI Inspection: Yes normal to inspection Neuro General: patient oriented x3 and gait normal Psych Appearance: well kempt Assessment & Plan Assessment & Plan (1) Family history of gastric cancer: Code(s): Z80.0 - Family history of malignant neoplasm of digestive organs (2) Helicobacter pylori gastritis: Code(s): K29.70 - Gastritis, unspecified, without bleeding; B96.81 - Helicobacter pylori [H. pylori] as the cause of diseases classified elsewhere (3) Bloating: Code(s): R14.0 - Abdominal distension (gaseous) (4) Personal history of colonic polyps: Code(s): Z86.010 - Personal history of colonic polyps Plan Successful eradication of H Pylori. Focal GIM on path which could be from active H Pylori infection. However given fam hx, will repeat EGD in 2 years for mapping bx and if negative, no further surveillance necessary. Next EGD due 2024. Reminder set. No evidence of esophagitis or gastritis and therefore PPI tx not indicated at this time. Bloating appears to be from dietary triggers. Handout provided listing common culprit foods. Simethicone to be taken PRN. Due to Hx of SSL, needs a colo in 5 years. Follow up in a year for EGD or sooner PRN Medications: New simethicone (Gas Relief (simethicone)) 80 mg PO BID-QID PRN 90 tabs 0RF abdominal distention Discontinued esomeprazole magnesium (Nexium 24HR) Discontinued Reason: Doctor's Order 20 mg PO DAILY 90 tabs 2RF Coding Level of Care Code Est Pt Level 4 (40078) Diagnoses Family history of gastric cancer Z80.0 Helicobacter pylori gastritis K29.70; B96.81 Bloating R14.0 Personal history of colonic polyps Z86.010
== END 2023-10-13 11:37 | disposition home or self-care (01) ==
PROVIDERS: PCP Internal Medicine Medical Oncology; Visit Provider Internal Medicine
DX: Z80.0 Family history of malignant neoplasm of digestive organs (principal); K29.70 Gastritis, unspecified, without bleeding; B96.81 Helicobacter pylori [H. pylori] as the cause of diseases classified elsewhere; R14.0 Abdominal distension (gaseous); Z86.010 Personal history of colon polyps
CPT/HCPCS: 99214

== ENCOUNTER → 2023-10-13 09:47 | Outpatient (BNVA) | payer MEDICARE, MEDICAID, SELFPAY | PROVIDERS: PCP Internal Medicine Medical Oncology; Visit Provider Internal Medicine | DX: K29.70 Gastritis, unspecified, without bleeding (principal); B96.81 Helicobacter pylori [H. pylori] as the cause of diseases classified elsewhere; R14.0 Abdominal distension (gaseous); Z80.0 Family history of malignant neoplasm of digestive organs; Z86.010 Personal history of colon polyps | CPT/HCPCS: 99212 ==

== ENCOUNTER → 2023-11-26 11:15 | Outpatient (BNV) | payer MEDICARE, MEDICAID, SELFPAY | PROVIDERS: PCP Internal Medicine Medical Oncology; Visit Provider Radiology Diagnostic Radiology | DX: Z12.31 Encounter for screening mammogram for malignant neoplasm of breast (principal) | CPT/HCPCS: 77063; 77067 ==

== ENCOUNTER 2023-11-26 11:24 | Outpatient (REF) | payer MEDICARE, MEDICAID, SELFPAY | END 2023-11-26 11:25 | disposition home or self-care (01) | LOC: HO.MAMMO 11:24 | PROVIDERS: PCP Internal Medicine Medical Oncology; Visit Provider Internal Medicine Medical Oncology | DX: Z12.31 Encounter for screening mammogram for malignant neoplasm of breast (principal) | CPT/HCPCS: 77063; 77067 ==

== ENCOUNTER 2024-02-03 11:02 | Outpatient (AMB) | payer MEDICARE, MEDICAID, SELFPAY ==
--- NOTE | 2024-02-03 11:17 | MHC.OFFVIS ---
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 Gullet Slitter Required: No Gullet Slitter Services: Gullet Slitter Present Information Interpreted: clinical only Sfdc Solution Architect: Sfdc Solution Architect Present Allergies Latex, Natural Rubber Allergy (Severe, Verified 02/03/24 11:21) Rash Medication List - Last Reconciled 02/03/24 by Abigali Hyde CNM albuterol sulfate 90 mcg/actuation (Ventolin HFA) 2 puffs inhalation Q4H PRN amlodipine 5 mg PO BID cyclobenzaprine 10 mg PO BID gabapentin 600 mg PO QID montelukast 10 mg PO DAILY polyethylene glycol 3350 (Miralax) 17 grams PO DAILY 30 days sennosides (senna) 17.2 mg (2 x 8.6 mg) PO BEDTIME 90 days simethicone 80 mg PO BID-QID Post menopausal: Yes (2009) Do you need a note to return to daycare/school/sports/work: No HPI HPI 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 She had babies there from -. She is to her 27 years and has no concerns about STDs. She has had a lot of issues with bulging discs and her lower back and she was on steroids to deal with the pain for a long time and it caused her to gain a whole lot of weight and have other side effects and she eventually went and she feels much better and she is working on losing the weight and trying to strengthen herself and get healthier she uses a cane for support because if she walks a long way it helps her to walk Straighter. She is working on quitting smoking and is down to 3 cigarettes a day. [facility] Medical History (Updated 02/03/24 @ 12:04 by Abigail Hyde CNM) Personal history of colonic polyps Helicobacter pylori gastritis Family history of gastric cancer Bright red rectal bleeding Obesity Chronic back pain Lumbar radiculopathy Smoker HTN (hypertension) COPD (chronic obstructive pulmonary disease) Surgical History History of esophagogastroduodenoscopy (EGD) H/O colonoscopy S/P removal of right ovary S/P tubal ligation S/P tonsillectomy Hx of appendectomy Family History Mother Stomach cancer Maternal Grandfather Prostate cancer screening declined Sister Cervical cancer Sister Breast cancer Diabetes Paternal Aunt Heart disease Social History Alcohol intake: current Alcohol intake frequency: holidays/special occasions only Patient Tobacco Use Status: Current everyday Tobacco user Cigarettes Per Day: 3 Female Reproductive History Menstrual Age of Menarche: 11 Duration of menses: 3-5 days control method: none and permanent sterilization Total pregnancies: 7 Full term: 6 History of abnormal pap smear: No (never abn.pap,previous pap neg. unsure date) Physical Exam Vital Signs: Last Vital Signs BP 138/76 02/03/24 11:18 BMI result Body Mass Index 32.7 Const General: healthy appearing, comfortable, no acute distress, well developed and alert Nutritional Appearance: average body habitus Orientation/consciousness: patient oriented x3 Limitations: no limitations HEENT Head: Yes normocephalic Neck Neck: Yes normal visual inspection Chest Chest palpation & inspection: normal inspection of the chest Breast/axilla inspection: normal inspection of the breasts and normal inspection of the axillae Breast/axilla palpation: normal palpation of the breasts and normal palpation of the axillae Resp Effort & Inspection: normal respiratory effort GI Inspection: Yes normal to inspection, No Abdominal wall edema and No distended Palpation (GI): Soft to palpation and nontender Other: External exam within normal limits vagina pink and moist cervix multiparous pink smooth moist fairly normal appearing of white-colored discharge. Uterus midposition mobile nontender adnexa nontender good tone with Kegel. General: Yes bladder normal to palpation External Female Exam: normal external appearance and normal appearance of the urethra Speculum Exam - Vagina: normal appearance of the vagina, normal palpation and normal vaginal discharge Speculum Exam - Cervix: normal appearance of the cervix, normal palpation and nontender Bimanual exam- vagina & uterus: normal bimanual exam, normal palpation, uterine size normal, bladder normal to palpation, consistency normal, normal palpation, uterine mobility normal, uterine shape normal, No Cervical tenderness present, non-tender and no cervical motion tenderness Bimanual Exam- Adnexa, other: normal adnexae, no masses, normal and No adnexal tenderness Neuro General: patient oriented x3 Assessment & Plan Assessment & Plan (1) Well woman exam with routine gynecological exam: Code(s): Z01.419 - Encounter for gynecological examination (general) (routine) without abnormal findings Category: Medical (2) Cervical cancer screening: Code(s): Z12.4 - Encounter for screening for malignant neoplasm of cervix Category: Medical (3) Post-menopausal: Code(s): Z78.0 - Asymptomatic menopausal state Category: Medical (4) Lumbar radiculopathy: Code(s): M54.16 - Radiculopathy, lumbar region Category: Medical Plan -----Discussed in this visit the following: healthy balanced diet, regular and consistent exercise, getting recommended health screens, doing the best she can for her particular health concerns, kegel exercises, pap smear screening and followup recommendations, mammography screening and SBE, normal changes in cycles in her life stage--- . She is getting her yearly mammograms. Congratulated on all over healthy choices and efforts to try and be as healthy as she can be. I told her to expect a letter within a month about the Pap smear and that if we call her about either bacterial vaginosis or yeast it is not a big deal but we will just simply offer her treatment if she has any symptoms. The other testing we will only call for positive results. Coding Level of Care Code New Pt Prev Care 40-64y(90047) Diagnoses Well woman exam with routine gynecological exam Z01.419 Cervical cancer screening Z12.4 Post-menopausal Z78.0 Lumbar radiculopathy M54.16
[2024-02-03 11:18] VITALS: BP 138/76; BMI 32.7
== END 2024-02-03 12:04 | disposition home or self-care (01) ==
LOC: HO.HWSM 11:02
PROVIDERS: PCP Internal Medicine Medical Oncology; Visit Provider Advanced Practice Midwife
DX: Z01.419 Encounter for gynecological examination (general) (routine) without abnormal findings (principal); Z78.0 Asymptomatic menopausal state
CPT/HCPCS: G0101

== ENCOUNTER 2024-02-03 11:02 | Outpatient (REF) | payer MEDICARE, MEDICAID, SELFPAY ==
[2024-02-04 13:58] LABS: CT PCR NOT DETECTED (Not Detect.); NG PCR NOT DETECTED (Not Detect.)
[2024-02-04 14:28] LABS: Bacterial Vaginosis PCR POSITIVE (Negative); Candida Group PCR NOT DETECTED (Not Detect); Candida glab krusei PCR NOT DETECTED (Not Detect); Trichomonas vaginalis PCR NOT DETECTED (Not Detect)
[2024-02-09 07:23] LABS: HPV mRNA E6/E7 Not Detected (Not Detected)
== END 2024-02-03 11:03 | disposition home or self-care (01) ==
LOC: HO.LAB 11:02
PROVIDERS: PCP Internal Medicine Medical Oncology; Visit Provider Advanced Practice Midwife
DX: Z01.419 Encounter for gynecological examination (general) (routine) without abnormal findings (principal); N89.8 Other specified noninflammatory disorders of vagina; M54.16 Radiculopathy, lumbar region; Z78.0 Asymptomatic menopausal state; Z20.2 Contact with and (suspected) exposure to infections with a predominantly sexual mode of transmission
CPT/HCPCS: 0352U; 36415; 87491; 87591; 87624; 88175; G0101